=== PATIENT | female | born 1960 | race Caucasian/White ===

== ENCOUNTER 2018-10-08 23:12 | Emergency (ER) | payer OTHER ==
[~2018-10-08] VITALS: Ht 160 cm; Wt 95.3 kg
[2018-10-08 23:45] VITALS: BP 148/91
[2018-10-09] MEDS ORDERED: IV NORMAL SALINE 1000ML BAG 1,000 ML IV ONE (00:15)
[2018-10-09] MEDS ORDERED: KETOROLAC 15 MG/ML VIAL. IM ONE (00:15)
[2018-10-09 00:19] LABS: BILIRUBIN,URINE NEGATIVE (NEG); CLARITY,URINE CLEAR; COLOR,URINE YELLOW; NITRITE,URINE NEGATIVE (NEG); PH,URINE 5.5; PROTEIN,URINE NEGATIVE (NEG-TRACE); UROBILINOGEN,URINE 0.2 mg/dL (0.2 mg/dL)
[2018-10-09 00:26] LABS: BACTERIA,URINE MANY /HPF (0-FEW); RBC,URINE 0 /HPF (0-2); SQUAMOUS EPITHELIAL CELL,UR MANY /LPF
[2018-10-09 00:41] LABS: BASO # 0.1 x10^3/uL (0.0-0.2); BASO % 1 % (0-3); EOS % 0 % (0-3); HEMATOCRIT 40.8 % (36.0-47.0); HEMOGLOBIN 13.7 g/dL (12.0-15.5); LYMPH # 1.8 x10^3/uL (1.0-4.8); LYMPH % 13 % (24-48); MEAN CORPUSCULAR HEMOGLOBIN 29 pg (25-35); MEAN CORPUSCULAR HGB CONC 34 g/dL (31-37); MEAN CORPUSCULAR VOLUME 87 fL (79-100); MONO # 0.6 x10^3/uL (0.0-1.1); MONO % 4 % (0-9); NEUT # 11.7 x10^3uL (1.8-7.7); NEUT % 82 % (31-73); PLATELET COUNT 354 x10^3/uL (140-400); RED BLOOD COUNT 4.69 x10^6/uL (3.50-5.40); RED CELL DISTRIBUTION WIDTH 14.6 % (11.5-14.5); WHITE BLOOD COUNT 14.2 x10^3/uL (4.0-11.0)
[2018-10-09] MEDS ORDERED: KETOROLAC 15 MG/ML VIAL. IV ONE (00:45)
[2018-10-09] MEDS ORDERED: METOCLOPRAMIDE HCL 10 MG/2 ML VIAL. IV ONE (00:45)
[2018-10-09 00:54] LABS: CALCIUM 9.5 mg/dL (8.5-10.1); CREATININE 1.1 mg/dL (0.6-1.0); POTASSIUM 3.1 mmol/L (3.5-5.1)
[2018-10-09 01:00] LABS: ALBUMIN 3.6 g/dL (3.4-5.0); ALBUMIN/GLOBULIN RATIO 0.9 (1.0-1.7); TOTAL BILIRUBIN 0.4 mg/dL (0.2-1.0); TOTAL PROTEIN 7.6 g/dL (6.4-8.2)
--- NOTE | 2018-10-09 01:08 | RAD ---
CT abdomen pelvis without contrast. HISTORY: Right flank pain CT scan was done without contrast. There is mild atelectasis in the lung bases. There is a granuloma in the left lower lobe. There is mild lower lumbar facet arthritis. There is diffuse fatty change in the liver without a focal lesion. There is a gallstone in the gallbladder. Spleen and adrenal glands are unremarkable. There is a small hiatus hernia. Pancreas was normal in appearance. There is no adenopathy. There is no free air or ascites. Appendix is normal. There is no mass or hydronephrosis in the kidneys. A ureteral calculus is not identified. The multiple phleboliths in the pelvis make evaluation more difficult. There is no bowel obstruction. Patient's had a hysterectomy. There is spurring and degenerative disc disease at L1-2. There is spinal stenosis at L4-5 and L3-4. IMPRESSION: 1. No renal calculus or hydronephrosis noted. 2. Diffuse fatty liver change. 3. Cholelithiasis. 4. Degenerative changes and spinal stenosis in the spinal canal. 5. Small hiatus hernia. 6. Normal appendix. PQRS Compliance Statement: One or more of the following individualized dose reduction techniques were utilized for this examination: 1. Automated exposure control 2. Adjustment of the mA and/or kV according to patient size 3. Use of iterative reconstruction technique Electronically signed by: Kevin Arceo MD (10/09/2018 1:05 AM) [facility]
[2018-10-09] MEDS ORDERED: HYDR-3164 PO (01:18)
[2018-10-09] MEDS ORDERED: ONDA4TAB12 PO (01:18)
[2018-10-09] MEDS ORDERED: FAMO-63 PO (01:18)
--- NOTE | 2018-10-09 01:18 | PHYS DOC ---
Past Medical History Past Medical History: Depression, Hyperthyroid, Other Additional Past Medical Histor: SLEEP APNEA Past Surgical History: Hysterectomy, Tubal ligation, Other Additional Past Surgical Histo: RIGHT WRIST Smoking: Quit Greater Than 1 Year Alcohol Use: Occasionally Drug Use: None Adult General Chief Complaint Chief Complaint: FLANK PAIN HPI HPI Patient is a 58 year old female who presents with left flank pain that began approximately 4-5 hours ago. The pain has been progressively worsening since it's onset and is described as an intense ache that is mostly constant but does have periods of increased severity. Pain is 7/10 and most localized over the lateral abdominal wall above the iliac crest with some extension into her back. Nothing makes it better or worse. She took a over the counter Tylenol with no relief. Last bowel movement was today and it was without blood and was normal in consistency. Patient has been nauseous since the pain's onset and has vomited multiple times. She denies fever, chills, dysuria, hematuria, vaginal spotting or discharge, Review of Systems Review of Systems Constitutional: Denies fever or chills [] Eyes: Denies change in visual acuity, redness, or eye pain [] HENT: Denies nasal congestion or sore throat [] Respiratory: Denies cough or shortness of breath [] Cardiovascular: Denies chest pain or palpitations [] GI: Reports left flank pain, nausea and vomiting. Denies constipation, diarrhea, or melena. [] : Denies dysuria or hematuria [] Musculoskeletal: Denies back pain or joint pain [] Integument: Denies rash or skin lesions [] Neurologic: Denies headache, focal weakness or sensory changes [] Complete review of systems found to be within normal limits, except as documented in this note. Current Medications Current Medications Current Medications Medications (Trade) Dose Ordered Sig/Krish Start Time Stop Time Status Last Admin Dose Admin Ketorolac Tromethamine (Toradol 15mg Vial) 15 mg 1X ONCE 10/09/18 00:45 10/09/18 00:46 DC 10/09/18 00:48 15 MG Metoclopramide HCl (Reglan Vial) 10 mg 1X ONCE 10/09/18 00:45 10/09/18 00:46 DC 10/09/18 00:48 10 MG Sodium Chloride 1,000 ml @ 1,000 mls/hr 1X ONCE 10/09/18 00:15 10/09/18 01:14 DC 10/09/18 00:25 1,000 MLS/HR Allergies Allergies Allergies Coded Allergies Type Severity Reaction Last Updated Verified No Known Drug Allergies 10/09/18 No Physical Exam Physical Exam Constitutional: Well developed, well nourished, in obvious pain. [] HENT: Normocephalic, atraumatic, oropharynx dry. [] Eyes: EOMI, conjunctiva normal, no discharge. [] Cardiovascular:Heart rate regular rhythm, no murmur [] Lungs & Thorax: Bilateral breath sounds clear to auscultation [] Abdomen: Soft without tenderness to palpation. [] Skin: Warm, dry, no erythema, no rash. [] Back: No tenderness, mild CVA tenderness on left. [] Extremities: No tenderness, no cyanosis, no clubbing. [] Neurologic: Alert and oriented, normal motor function, normal sensory function, no focal deficits noted. [] Psychologic: Affect normal, judgement normal, mood normal. [] Current Patient Data Vital Signs Vital Signs Date Time Temp Pulse Resp B/P (MAP) Pulse Ox O2 Delivery O2 Flow Rate FiO2 10/08/18 23:45 98.7 92 24 148/91 (110) 96 Room Air 98.7 Lab Values Laboratory Tests Test 10/09/18 00:01 10/09/18 00:30 Urine Collection Type Unknown Urine Color Yellow Urine Clarity Clear Urine pH 5.5 Urine Specific [place] 1.025 Urine Protein Negative mg/dL (NEG-TRACE) Urine Glucose (UA) Negative mg/dL (NEG) Urine Ketones (Stick) Negative mg/dL (NEG) Urine Blood Negative (NEG) Urine Nitrite Negative (NEG) Urine Bilirubin Negative (NEG) Urine Urobilinogen Dipstick 0.2 mg/dL (0.2 mg/dL) Urine Leukocyte Esterase Negative (NEG) Urine RBC 0 /HPF (0-2) Urine WBC 1-4 /HPF (0-4) Urine Squamous Epithelial Cells Many /LPF Urine Bacteria Many /HPF (0-FEW) Urine Mucus Marked /LPF White Blood Count 14.2 x10^3/uL (4.0-11.0) H Red Blood Count 4.69 x10^6/uL (3.50-5.40) Hemoglobin 13.7 g/dL (12.0-15.5) Hematocrit 40.8 % (36.0-47.0) Mean Corpuscular Volume 87 fL (79-100) Mean Corpuscular Hemoglobin 29 pg (25-35) Mean Corpuscular Hemoglobin Concent 34 g/dL (31-37) Red Cell Distribution Width 14.6 % (11.5-14.5) H Platelet Count 354 x10^3/uL (140-400) Neutrophils (%) (Auto) 82 % (31-73) H Lymphocytes (%) (Auto) 13 % (24-48) L Monocytes (%) (Auto) 4 % (0-9) Eosinophils (%) (Auto) 0 % (0-3) Basophils (%) (Auto) 1 % (0-3) Neutrophils # (Auto) 11.7 x10^3uL (1.8-7.7) H Lymphocytes # (Auto) 1.8 x10^3/uL (1.0-4.8) Monocytes # (Auto) 0.6 x10^3/uL (0.0-1.1) Eosinophils # (Auto) 0.0 x10^3/uL (0.0-0.7) Basophils # (Auto) 0.1 x10^3/uL (0.0-0.2) Sodium Level 141 mmol/L (136-145) Potassium Level 3.1 mmol/L (3.5-5.1) L Chloride Level 100 mmol/L (98-107) Carbon Dioxide Level 27 mmol/L (21-32) Anion Gap 14 (6-14) Blood Urea Nitrogen 13 mg/dL (7-20) Creatinine 1.1 mg/dL (0.6-1.0) H Estimated GFR (Cockcroft-Gault) 51.0 BUN/Creatinine Ratio 12 (6-20) Glucose Level 150 mg/dL (70-99) H Calcium Level 9.5 mg/dL (8.5-10.1) Total Bilirubin 0.4 mg/dL (0.2-1.0) Aspartate Amino Transferase (AST) 36 U/L (15-37) Alanine Aminotransferase (ALT) 39 U/L (14-59) Alkaline Phosphatase 82 U/L (46-116) Total Protein 7.6 g/dL (6.4-8.2) Albumin 3.6 g/dL (3.4-5.0) Albumin/Globulin Ratio 0.9 (1.0-1.7) L Lipase 98 U/L (73-393) Laboratory Tests 10/09/18 00:30 Laboratory Tests 10/09/18 00:30 EKG EKG [] Radiology/Procedures Radiology/Procedures PROCEDURE: CT ABDOMEN PELVIS WO CONTRAST CT abdomen pelvis without contrast. HISTORY: Right flank pain CT scan was done without contrast. There is mild atelectasis in the lung bases. There is a granuloma in the left lower lobe. There is mild lower lumbar facet arthritis. There is diffuse fatty change in the liver without a focal lesion. There is a gallstone in the gallbladder. Spleen and adrenal glands are unremarkable. There is a small hiatus hernia. Pancreas was normal in appearance. There is no adenopathy. There is no free air or ascites. Appendix is normal. There is no mass or hydronephrosis in the kidneys. A ureteral calculus is not identified. The multiple phleboliths in the pelvis make evaluation more difficult. There is no bowel obstruction. Patient's had a hysterectomy. There is spurring and degenerative disc disease at L1-2. There is spinal stenosis at L4-5 and L3-4. IMPRESSION: 1. No renal calculus or hydronephrosis noted. 2. Diffuse fatty liver change. 3. Cholelithiasis. 4. Degenerative changes and spinal stenosis in the spinal canal. 5. Small hiatus hernia. 6. Normal appendix. RS Compliance Statement: One or more of the following individualized dose reduction techniques were utilized for this examination: 1. Automated exposure control 2. Adjustment of the mA and/or kV according to patient size 3. Use of iterative reconstruction technique Electronically signed by: Kevin Arceo MD (10/09/2018 1:05 AM) [facility] Course & Med Decision Making Course & Med Decision Making Pertinent Labs and Imaging studies reviewed. (See chart for details) Patient is a 58 year old female who presents with acute onset left flank pain. CT abdomen and pelvis showed no evidence of nephrolithiasis, obstructive uropathy, appendicitis, or other acute process. Fatty liver and cholelithiasis were visualized. Alkaline phosphatase, bilirubin, AST and ALT within normal limits. WBC 14.2. Patient has been afebrile with normal vital signs. UA negative. Lipase negative. Fluid bolus given in ED. Pain addressed with improvement of her symptoms. She feels well enough to be discharged home at this time. Will prescribe Rx for analgesia and anti-emetics for home with return precautions. Patient stable for discharge with outpatient follow-up with PCP. Discussed findings and plan with patient, who acknowledge understanding and agreement. [] Dragon Disclaimer Dragon Disclaimer This electronic medical record was generated, in whole or in part, using a voice recognition dictation system. Departure Departure Impression: Primary Impression: Flank pain Additional Impression: Cholelithiasis Disposition: HOME, SELF-CARE Condition: STABLE Referrals: KYREE HARO MD, SCOTT S MD Patient Instructions: Cholelithiasis, Atqh-by-Cuky, Flank Pain, Cbos-ju-Cemp Scripts Hydrocodone/Apap 5-325 (NORCO 5-325 TABLET) 1 Each Tablet 0.5-1 TAB PO PRN Q6HRS PRN for PAIN, #10 TAB 0 Refills Prov: AUDREY PRETTY DO 10/09/18 Famotidine (PEPCID) 20 Mg Tablet 20 MG PO BID, #14 TAB Prov: AUDREY PRETTY DO 10/09/18 Ondansetron (ONDANSETRON ODT) 4 Mg Tab.rapdis 1 TAB PO PRN Q6-8HRS PRN for NAUSEA, #16 TAB Prov: AUDREY PRETTY DO 10/09/18 Problem Qualifiers Additional Impression: Cholelithiasis Cholelithiasis location: gallbladder Cholecystitis presence: without cholecystitis Biliary obstruction: without biliary obstruction Qualified Codes: K80.20 - Calculus of gallbladder without cholecystitis without obstruction AUDREY PRETTY DO October 09, 2018 01:18
== END 2018-10-09 01:55 | disposition home or self-care (01) ==
LOC: ER 23:12
DX: K80.20 Calculus of gallbladder without cholecystitis without obstruction (principal); R11.2 Nausea with vomiting, unspecified; Z87.891 Personal history of nicotine dependence; Z90.710 Acquired absence of both cervix and uterus; Z98.51 Tubal ligation status
CPT/HCPCS: 36415; 74176; 80053; 81001; 83690; 85025; 87086; 96361; 96374; 96375; 99285; J1885; J2765; J7030